=== PATIENT | female | born 1990 | race Caucasian/White ===

== ENCOUNTER 2016-10-01 20:30 | Emergency (ER) | payer MEDICAID, OTHER ==
[~2016-10-01] VITALS: Ht 152.4 cm; Wt 45.5 kg
[~2016-10-01 20:30] MED LIST: CIPR-9 PO; FLUO-1 PO; KLON2TAB PO; PYRI200T4 PO; SERO50TA4 PO
[2016-10-01 20:32] VITALS: BP 129/60; PULSE 88; RESP 16; TEMP 98.5; O2SAT 98
--- NOTE | 2016-10-01 21:12 | PD ---
HPI Chief Complaint: Chest Pain Time Seen by Provider: 21:09 Travel History International Travel<30 days: No Contact w/Intl Traveler<30days: No Traveled to known affect area: No History of Present Illness HPI 26-year-old female with history of no significant past medical issues, presents to the ER today because she states that she was wrestling with her sister juana and fell into the wall hitting her left shoulder, is now having left anterior chest wall pains and feels the spot where there is a crackle when she presses. She denies any shortness of breath but states that she has pain at the left anterior chest wall when she takes a deep breath. She denies any shortness of breath or any other symptoms. Modifying Factors: None Associated Signs & Symptoms: Left chest wall pain, injury Risk Factors: None PFSH Past Medical History ADHD: No Autoimmune Disease: No Blood Disorders: No Anxiety: Yes Depression: Yes Cancer: No Cardiovascular Problems: No Cirrhosis: Yes (LIVER CIRRHOSIS) Diabetes: No Diminished Hearing: No Endocrine: No Gastrointestinal Disorders: Yes Genitourinary: No Hepatitis: No Immune Disorder: Yes Musculoskeletal: No Neurologic: No Psychiatric: No Reproductive: No Respiratory: No Immunizations Current: Yes Migraines: No Seizures: No Thyroid Disease: Yes (NATHALIE'S) Ulcer: No Menopausal: No : 2 Para: 2 Miscarriage: 0 : 0 Past Surgical History Appendectomy: No Section: Yes (X2) Cholecystectomy: No Gynecologic Surgery: Yes (2 C-SECTIONS 2005, 2007) Joint Replacement: No Neurologic Surgery: No Pacemaker: No Thoracic Surgery: No Social History Alcohol Use: Yes Tobacco Use: No Substance Use: No (unknown) Allergies-Medications (Allergen,Severity, Reaction): Coded Allergies: Latex (Verified Allergy, Severe, Swelling, 10/01/16) Reported Meds & Prescriptions Reported Meds & Active Scripts Active Reported Seroquel XR (Quetiapine Fumarate) 50 Mg Tab 25 Mg PO HS Prozac (Fluoxetine HCl) 40 Mg Cap 40 Mg PO DAILY Klonopin (Clonazepam) 2 Mg Tab 2 Mg PO BID Review of Systems Except as stated in HPI: all other systems reviewed are Neg Physical Exam Narrative GENERAL: Well-nourished, well-developed young white female patient in no acute distress. SKIN: Warm and dry. HEAD: Normocephalic. EYES: No scleral icterus. No injection or drainage. NECK: Supple, trachea midline. CARDIOVASCULAR: Regular rate and rhythm without murmurs, gallops, or rubs. RESPIRATORY: Breath sounds equal bilaterally. No accessory muscle use. CHEST: Mild tenderness to palpation of the left anterior chest wall at the area of the second rib midclavicular line without deformity or crepitance. No retractions or use of accessory muscles. GASTROINTESTINAL: Abdomen soft, non-tender, nondistended. MUSCULOSKELETAL: No cyanosis, or edema. BACK: Nontender without obvious deformity. No CVA tenderness. Data Data Last Documented VS Vital Signs Date Time Temp Pulse Resp B/P Pulse Ox O2 Delivery O2 Flow Rate FiO2 10/01/16 20:32 98.5 88 16 129/60 98 Room Air Orders Ribs, Uni (W/Exp Cxr-Min 3vw) (10/01/16 21:09) [facility] Medical Decision Making Medical Screen Exam Complete: Yes Emergency Medical Condition: Yes Medical Record Reviewed: Yes Differential Diagnosis Left chest wall injuryfractures versus contusion Narrative Course X-ray did not show any obvious acute fractures or pneumothoraces. Patient's vital signs are stable in the ER. She is fairly comfortable on evaluation. At this point, I do not suspect other acute issues although she may have an underlying occult rib fracture or rib contusion which we will treat symptomatically. Follow-up with primary care physician. Return for any worsening in pain or new symptoms as needed. The plan has been discussed with her and she is agreeable. Diagnosis Primary Impression: Rib contusion Med/Other Pt SpecificInfo: Prescription(s) given Scripts Hydrocodone-Acetaminophen (Lortab)5-325 Mg Tab1 Tab PO Q6H PRN (PAIN GREATER THAN 6) #15 TAB Ref 0 Prov:Crow Wood MD 10/01/16 Ibuprofen (Motrin Ib)200 Mg [id number] Mg PO Q6H PRN (PAIN SCALE 1 TO 10) #21 TAB Ref 0 Prov:Crow Wood MD 10/01/16 Disposition: 01 DISCHARGE HOME Condition: Stable Crow Wood MD Oct 01, 2016 21:12
[2016-10-01] MEDS ORDERED: QUET50XR PO (21:42)
[2016-10-01] MEDS ORDERED: KLON2TAB PO (21:42)
[2016-10-01] MEDS ORDERED: PROZ40CA PO (21:42)
--- NOTE | 2016-10-01 21:44 | RADRPT ---
EXAM DATE/TIME: 10/01/2016 21:34 [facility] COMPARISON: No previous studies available for comparison. INDICATIONS : Generalized Left side rib pain after fall. MEDICAL HISTORY : None. SURGICAL HISTORY : None. ENCOUNTER: Initial ACUITY: 1 day PAIN SCORE: 10/10 LOCATION: Left Ribs. FINDINGS: Multiple views of the left ribs were performed. There is no evidence of displaced fracture. No dest ructive lesions or areas of periosteal thickening are seen. Expiratory view of the chest is negative for pneumothorax. The mediastinal structures are midline. CONCLUSION: Negative for displaced rib fracture or pneumothorax. Shree Carrillo MD FACR on October 01, 2016 at 21:42 Board Certified Radiologist. This report was verified electronically.
[2016-10-01] MEDS ORDERED: MOTR200T4 PO (21:50)
[2016-10-01] MEDS ORDERED: HYDR-3533 PO (21:50)
== END 2016-10-01 22:00 | disposition home or self-care (01) ==
LOC: NEPC 20:30
DX: S20.212A Contusion of left front wall of thorax, initial encounter (principal); W22.01XA Walked into wall, initial encounter; F32.9 Major depressive disorder, single episode, unspecified
CPT/HCPCS: 71101; 99283

== ENCOUNTER 2017-02-15 04:39 | Emergency (ER) | payer MEDICAID, OTHER ==
[~2017-02-15] VITALS: Ht 152.4 cm; Wt 52.0 kg
[~2017-02-15 04:39] MED LIST changes: -CIPR-9 PO; -FLUO-1 PO; +HYDR-3533 PO; +MOTR200T4 PO; +PROZ40CA PO; -PYRI200T4 PO; +QUET50XR PO; -SERO50TA4 PO
[2017-02-15 04:41] VITALS: BP 138/81; PULSE 74; RESP 18; TEMP 98; O2SAT 100
[2017-02-15] MEDS ORDERED: HYDR-3533 PO (05:10)
[2017-02-15] MEDS ORDERED: CLIN150 PO (05:10)
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
[2017-02-15] MEDS ORDERED: CLINDAMYCIN 150 MG CAP PO ONE (05:15)
[2017-02-15] MEDS ORDERED: ACETAMINOPHEN/HYDROcodone 325 MG/5 MG TAB PO ONE (05:15)
== END 2017-02-15 05:43 | disposition home or self-care (01) ==
LOC: NEPD 04:39
DX: K04.7 Periapical abscess without sinus (principal)
CPT/HCPCS: 99284

== ENCOUNTER 2017-04-04 14:50 | Emergency (ER) | payer OTHER ==
[~2017-04-04] VITALS: Ht 152.4 cm; Wt 50.0 kg
[~2017-04-04 14:50] MED LIST changes: +CLIN150 PO; -MOTR200T4 PO
[2017-04-04 14:52] VITALS: BP 133/87; PULSE 88; TEMP 98.7; O2SAT 100
== END 2017-04-04 15:51 | disposition left against medical advice (07) ==
LOC: NED 14:50
DX: K08.89 Other specified disorders of teeth and supporting structures (principal); Z53.21 Procedure and treatment not carried out due to patient leaving prior to being seen by health care provider
CPT/HCPCS: 99281

== ENCOUNTER 2017-08-12 18:18 | Emergency (ER) | payer OTHER ==
[~2017-08-12] VITALS: Ht 152.4 cm; Wt 45.0 kg
[2017-08-12 18:22] VITALS: BP 131/74; PULSE 108; RESP 16; TEMP 99.1; O2SAT 99
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
== END 2017-08-13 00:30 | disposition home or self-care (01) ==
LOC: NEPD 18:18
DX: T76.21XA Adult sexual abuse, suspected, initial encounter (principal); N93.9 Abnormal uterine and vaginal bleeding, unspecified; F17.210 Nicotine dependence, cigarettes, uncomplicated; Z79.899 Other long term (current) drug therapy
CPT/HCPCS: 99281

== ENCOUNTER 2017-09-15 18:18 | Emergency (ER) | payer OTHER ==
[~2017-09-15] VITALS: Ht 152.4 cm; Wt 48.8 kg
[~2017-09-15 18:18] MED LIST changes: -CLIN150 PO; -HYDR-3533 PO; -PROZ40CA PO; -QUET50XR PO
[2017-09-15 18:20] VITALS: BP 110/58; PULSE 91; RESP 16; TEMP 98.5; O2SAT 97
[2017-09-15] MEDS ORDERED: PROZ40CA PO (18:39)
[2017-09-15] MEDS ORDERED: QUET150XR PO (18:39)
[2017-09-15] MEDS ORDERED: ZOFR4TAB PO (19:34)
--- NOTE | 2017-09-15 19:34 | PD ---
HPI Chief Complaint: Cold / Flu Symptoms Time Seen by Provider: 19:28 Travel History International Travel<30 days: No Contact w/Intl Traveler<30days: No Traveled to known affect area: No History of Present Illness HPI 27 old female here for evaluation of body aches, is a congestion, sore throat, subjective fever, nausea and vomiting since this morning. She reports multiple coworkers with similar symptoms. Reports 2 episodes of nonbloody emesis this morning. Denies abdominal pain. No diarrhea. No dysuria or vaginal discharge. Severity is moderate. No aggravating or alleviating factors. PFSH Past Medical History ADHD: No Autoimmune Disease: No Blood Disorders: No Anxiety: Yes Depression: Yes Cancer: No Cardiovascular Problems: No Cirrhosis: Yes (LIVER CIRRHOSIS) Diabetes: No Diminished Hearing: No Endocrine: No Gastrointestinal Disorders: Yes Genitourinary: No Hepatitis: No Immune Disorder: Yes Musculoskeletal: No Neurologic: No Psychiatric: Yes Reproductive: No Respiratory: No Immunizations Current: Yes Migraines: No Seizures: No Thyroid Disease: Yes (NATHALIE'S) Ulcer: No Tetanus Vaccination: < 5 Years Influenza Vaccination: No ?: Not Menopausal: No : 2 Para: 2 Miscarriage: 0 : 0 Past Surgical History Abdominal Surgery: Yes (LIVER BIOPSY FOR AN ESTRIGEN OD @19) Appendectomy: No Section: Yes (X2) Cholecystectomy: No Gynecologic Surgery: Yes (2 C-SECTIONS 2005, 2007) Joint Replacement: No Neurologic Surgery: No Pacemaker: No Thoracic Surgery: No Other Surgery: Yes (utra) Social History Alcohol Use: Yes (OCC) Tobacco Use: Yes (SOCIAL) Substance Use: No (pt denies) Allergies-Medications (Allergen,Severity, Reaction): Coded Allergies: latex (Verified Allergy, Severe, Swelling, 09/15/17) Reported Meds & Prescriptions Reported Meds & Active Scripts Active Zofran (Ondansetron HCl) 4 Mg Tab 4 Mg PO Q6HR PRN Reported Seroquel XR (Quetiapine Fumarate) 150 Mg Tab 150 Mg PO DAILY Prozac (Fluoxetine HCl) 40 Mg Cap 40 Mg PO DAILY Klonopin (Clonazepam) 2 Mg Tab 2 Mg PO BID Review of Systems Except as stated in HPI: all other systems reviewed are Neg General / Constitutional: Positive: Fever Eyes: No: Visual changes HENT: Positive: Sore Throat, Congestion Cardiovascular: No: Chest Pain or Discomfort Respiratory: Positive: Cough Gastrointestinal: Positive: Nausea, Vomiting Skin: No Rash Physical Exam Narrative GENERAL: Alert female. Well appearing. Nontoxic appearing. SKIN: Warm and dry. No rash. HEAD: Normocephalic. EYES: No scleral icterus. No injection or drainage. MOUTH: Mild pharyngeal erythema without tonsillar hypertrophy or exudate. NECK: Supple, trachea midline. CARDIOVASCULAR: Regular rate and rhythm RESPIRATORY: Breath sounds equal bilaterally. No accessory muscle use. GASTROINTESTINAL: Abdomen soft, non-tender, nondistended. MUSCULOSKELETAL: No cyanosis, or edema. BACK: Nontender without obvious deformity. No CVA tenderness. Data Data Last Documented VS Vital Signs Date Time Temp Pulse Resp B/P (MAP) Pulse Ox O2 Delivery O2 Flow Rate FiO2 09/15/17 18:36 Room Air 09/15/17 18:20 98.5 91 16 110/58 (75) 97 MDM Medical Decision Making Medical Screen Exam Complete: Yes Emergency Medical Condition: Yes Differential Diagnosis Viral illness, influenza, URI, gastroenteritis Narrative Course 27 old female here for evaluation of body aches, subjective fever, nausea and vomiting since this morning. She reports multiple coworkers with similar symptoms. Her physical exam is reassuring. Her vital signs are stable. She is nontoxic appearing. She is tolerating by mouth fluids. Her abdomen soft and nontender. She is not interested in being treated or tested for flu. She is just requesting for a work excuse and something for the nausea. Diagnosis Primary Impression: Viral illness Referrals: [facility] Departure Forms: Tests/Procedures, Work Release Enter return to work date: Sep 16, 2017 Additional Instructions: Stay well hydrated by drinking plenty of fluids. Take Zofran as needed for nausea vomiting. Eat a bland diet. Scripts Ondansetron (Zofran) 4 Mg Tab 4 MG PO Q6HR Y for NAUSEA OR VOMITING, #12 TAB 0 Refills Prov: Michaela Payne 09/15/17 Disposition: 01 DISCHARGE HOME Condition: Stable Michaela Payne Sep 15, 2017 19:34
== END 2017-09-15 19:38 | disposition home or self-care (01) ==
LOC: PHEFT 18:18
DX: B34.9 Viral infection, unspecified (principal); K74.60 Unspecified cirrhosis of liver; E06.3 Autoimmune thyroiditis; F41.9 Anxiety disorder, unspecified; F32.9 Major depressive disorder, single episode, unspecified; Z72.0 Tobacco use
CPT/HCPCS: 99283

== ENCOUNTER 2017-10-27 08:35 | Emergency (ER) | payer OTHER ==
[~2017-10-27 08:35] MED LIST changes: +PROZ40CA PO; +QUET150XR PO; +ZOFR4TAB PO
[2017-10-27 08:37] VITALS: BP 123/63; PULSE 102; RESP 24; TEMP 101.6; O2SAT 98
[2017-10-27 09:04] VITALS: BP 123/60; PULSE 99; RESP 18; TEMP 101.9; O2SAT 100
[2017-10-27] MEDS ORDERED: SODIUM CHLOR 0.9% 1000 ML INJ 1,000 ML IV SCH (09:04)
[2017-10-27] MEDS ORDERED: ONDANSETRON HCL 4 MG/2 ML VIAL IVP ONE (09:15)
[2017-10-27] MEDS ORDERED: MORPHINE SULFATE 4 MG/ML INJ IV PUSH ONE ×2 (09:15→12:45)
--- NOTE | 2017-10-27 09:23 | PD ---
HPI Chief Complaint: Abdominal Pain Time Seen by Provider: 09:04 Travel History International Travel<30 days: No Contact w/Intl Traveler<30days: No Traveled to known affect area: No History of Present Illness HPI Patient complains of 28 hours worth of right upper quadrant right lower quadrant and right flank area pain, rates it an 8/10, nonradiating, not associated with vomiting or diarrhea. No alleviating or aggravating factors. Patient denies any associated factors such as cough runny nose chest pain. Allergy to latex only Past medical history states cirrhosis from [facility] Denies any past surgical history other than (Dr. Patrick) PFSH Past Medical History ADHD: No Autoimmune Disease: No Blood Disorders: No Anxiety: Yes Depression: Yes Cancer: No Cardiovascular Problems: No Cirrhosis: Yes (LIVER CIRRHOSIS) Diabetes: No Diminished Hearing: No Endocrine: No Gastrointestinal Disorders: Yes Genitourinary: No Hepatitis: No Hypertension: No Immune Disorder: Yes Musculoskeletal: No Neurologic: No Psychiatric: Yes Reproductive: No Respiratory: No Immunizations Current: Yes Migraines: No Seizures: No Thyroid Disease: Yes (NATHALIE'S) Ulcer: No ?: Not LMP: OCT 2017 Menopausal: No : 2 Para: 2 Miscarriage: 0 : 0 Past Surgical History Abdominal Surgery: Yes (LIVER BIOPSY FOR AN ESTRIGEN OD @19) Appendectomy: No Section: Yes (X2) Cholecystectomy: No Gynecologic Surgery: Yes (2 C-SECTIONS 2005, 2007) Joint Replacement: No Neurologic Surgery: No Pacemaker: No Thoracic Surgery: No Other Surgery: Yes (utra) Social History Alcohol Use: Yes (OCC) Tobacco Use: Yes (SOCIAL) Substance Use: Yes (THC daily) Allergies-Medications (Allergen,Severity, Reaction): Coded Allergies: latex (Verified Allergy, Severe, Swelling, 09/15/17) Reported Meds & Prescriptions Reported Meds & Active Scripts Active Macrobid (Nitrofurantoin Monohydrate Macrocrystals) 100 Mg Capsule 100 Mg PO BID 7 Days Zofran Odt (Ondansetron Odt) 4 Mg Tab 4 Mg SL Q6HR PRN Ketorolac (Ketorolac Tromethamine) 10 Mg Tab 10 Mg PO Q6HR PRN Reported B Complex (B-Complex Vitamins) 1 Cap 1 Cap PO DAILY Klonopin (Clonazepam) 2 Mg Tab 2 Mg PO BID Physical Exam Narrative GENERAL: SKIN: Warm and dry. HEAD: Atraumatic. Normocephalic. EYES: Pupils equal and round. No scleral icterus. No injection or drainage. ENT: No nasal bleeding or discharge. Mucous membranes pink and moist. NECK: Trachea midline. No JVD. CARDIOVASCULAR: Regular rate and rhythm. RESPIRATORY: No accessory muscle use. Clear to auscultation. Breath sounds equal bilaterally. GASTROINTESTINAL: Abdomen soft, non-tender, nondistended. MUSCULOSKELETAL: Extremities without clubbing, cyanosis, or edema. No obvious deformities. NEUROLOGICAL: Awake and alert. No obvious cranial nerve deficits. Motor grossly within normal limits. Five out of 5 muscle strength in the arms and legs. Normal speech. PSYCHIATRIC: Appropriate mood and affect; insight and judgment normal. Data Data Last Documented VS Orders Orders Complete Blood Count With Diff (10/27/17 09:04) Comprehensive Metabolic Panel (10/27/17 09:04) Lipase (10/27/17 09:04) Urinalysis - C+S If Indicated (10/27/17 09:04) Iv Access Insert/Monitor (10/27/17 09:04) Ecg Monitoring (10/27/17 09:04) Oximetry (10/27/17 09:04) NPO (10/27/17 09:04) Morphine Inj (Morphine Inj) (10/27/17 09:15) Ondansetron Inj (Zofran Inj) (10/27/17 09:15) Sodium Chlor 0.9% 1000 Ml Inj (Ns 1000 M (10/27/17 09:04) Ed Urine Pregnancytest Poc (10/27/17 09:04) Lactic Acid Sepsis Protocol (10/27/17 09:09) Blood Culture (10/27/17 09:09) Ct Abd/Pel W Iv Contrast(Rout) (10/27/17 09:23) Oral Contrast - Adult (10/27/17 09:29) Diatrizoate Liq ( Gastroview Liq) (10/27/17 09:46) Iohexol 350 Inj (Omnipaque 350 Inj) (10/27/17 11:26) Ketorolac Inj (Toradol Inj) (10/27/17 12:45) Morphine Inj (Morphine Inj) (10/27/17 12:45) Ondansetron Inj (Zofran Inj) (10/27/17 12:45) Ed Discharge Order (10/27/17 12:44) Labs Laboratory Tests Test 10/27/17 09:12 10/27/17 09:20 White Blood Count 4.4 TH/MM3 Red Blood Count 5.34 MIL/MM3 Hemoglobin 16.9 GM/DL Hematocrit 48.2 % Mean Corpuscular Volume 90.3 FL Mean Corpuscular Hemoglobin 31.7 PG Mean Corpuscular Hemoglobin Concent 35.1 % Red Cell Distribution Width 13.1 % Platelet Count 99 TH/MM3 Mean Platelet Volume 10.4 FL Neutrophils (%) (Auto) 69.1 % Lymphocytes (%) (Auto) 22.3 % Monocytes (%) (Auto) 8.1 % Eosinophils (%) (Auto) 0.0 % Basophils (%) (Auto) 0.5 % Neutrophils # (Auto) 3.0 TH/MM3 Lymphocytes # (Auto) 1.0 TH/MM3 Monocytes # (Auto) 0.4 TH/MM3 Eosinophils # (Auto) 0.0 TH/MM3 Basophils # (Auto) 0.0 TH/MM3 CBC Comment AUTO DIFF Differential Total Cells Counted 100 Neutrophils % (Manual) 49 % Band Neutrophils % 24 % Lymphocytes % 20 % Monocytes % 7 % Neutrophils # (Manual) 3.2 TH/MM3 Differential Comment FINAL DIFF MANUAL Atypical Lymphocytes % Platelet Estimate LOW Platelet Morphology Comment NORMAL Urine Color YELLOW Urine Turbidity HAZY Urine pH 6.0 Urine Specific [place] 1.007 Urine Protein NEG mg/dL Urine Glucose (UA) NEG mg/dL Urine Ketones TRACE mg/dL Urine Occult Blood MOD Urine Nitrite NEG Urine Bilirubin NEG Urine Urobilinogen LESS THAN 2.0 MG/DL Urine Leukocyte Esterase MOD Urine RBC 84 /hpf Urine WBC 3 /hpf Urine Squamous Epithelial Cells 7 /hpf Urine Calcium Oxalate Crystals RARE /hpf Urine Bacteria RARE /hpf Urine Mucus FEW /lpf Microscopic Urinalysis Comment CULT NOT INDICATED Blood Urea Nitrogen 4 MG/DL Creatinine 0.66 MG/DL Random Glucose 96 MG/DL Total Protein 8.8 GM/DL Albumin 5.1 GM/DL Calcium Level 10.0 MG/DL Alkaline Phosphatase 149 U/L Aspartate Amino Transf (AST/SGOT) 52 U/L Alanine Aminotransferase (ALT/SGPT) 45 U/L Total Bilirubin 0.4 MG/DL Sodium Level 133 MEQ/L Potassium Level 3.2 MEQ/L Chloride Level 98 MEQ/L Carbon Dioxide Level 24.4 MEQ/L Anion Gap 11 MEQ/L Estimat Glomerular Filtration Rate 108 ML/MIN Lipase 81 U/L Lactic Acid Level 1.0 mmol/L MDM Medical Decision Making Medical Screen Exam Complete: Yes Emergency Medical Condition: Yes Medical Record Reviewed: Yes Differential Diagnosis UTI V APPY V OVARIAN CYST V KIDNEY STONES V GALLSTONES V DIVERTIC V COLITIS Narrative Course cbc shows no leukocytosis, no anemia. cmp showed normal electrolytes/kidney function. normal lipase. ct neg for colitis/divertic/kidney stones or appy. ua c/w uti, and adnexal pain in non female with neg ct is likely to have ovarian cyst as part of cause for pain. Diagnosis Primary Impression: UTI Additional Impression: OVARIAN CYST Patient Instructions: General Instructions, Ovarian Cyst (DC), Urinary Tract Infection in Women (DC) Scripts Nitrofurantoin Monohydrate Macrocrystals (Macrobid) 100 Mg Capsule 100 MG PO BID for Infection for 7 Days, #14 CAP 0 Refills Prov: Berto Powell MD 10/27/17 Ondansetron Odt (Zofran Odt) 4 Mg Tab 4 MG SL Q6HR Y for Nausea/Vomiting, #12 TAB 0 Refills Prov: Berto Powell MD 10/27/17 Ketorolac (Ketorolac) 10 Mg Tab 10 MG PO Q6HR Y for PAIN, #15 TAB 0 Refills Prov: Berto Powell MD 10/27/17 Disposition: 01 DISCHARGE HOME Condition: Stable Berto Powell MD Oct 27, 2017 09:23
[2017-10-27 09:33] LABS: BASOPHIL % 0.5 % (0.0-2.0); HEMATOCRIT 48.2 % (35.0-46.0); HEMOGLOBIN 16.9 GM/DL (11.6-15.3); LYMPH % 22.3 % (9.0-44.0); MEAN CELL VOLUME 90.3 FL (80.0-100.0); MEAN CORPUSCULAR HEMOGLOBIN 31.7 PG (27.0-34.0); MEAN CORPUSCULAR HGB CONC 35.1 % (32.0-36.0); MEAN PLATELET VOLUME 10.4 FL (7.0-11.0); MONO % 8.1 % (0.0-8.0); MONOCYTE # 0.4 TH/MM3 (0-0.9); NEUT % 69.1 % (16.0-70.0); PLATELET COUNT 99 TH/MM3 (150-450); RED BLOOD COUNT 5.34 MIL/MM3 (4.00-5.30); RED CELL DISTRIBUTION WIDTH 13.1 % (11.6-17.2); WHITE BLOOD COUNT 4.4 TH/MM3 (4.0-11.0)
[2017-10-27 09:44] VITALS: RESP 18; O2SAT 99
[2017-10-27] MEDS ORDERED: DIATRIZOATE MEGLUM/DIATRIZOATE SOD 9 ML CUP ONE (09:46)
[2017-10-27 09:49] LABS: ALBUMIN 5.1 GM/DL (3.4-5.0); ALT (GPT) 45 U/L (10-53); AST (GOT) 52 U/L (15-37); BICARBONATE 24.4 MEQ/L (21.0-32.0); BLOOD UREA NITROGEN 4 MG/DL (7-18); CHLORIDE 98 MEQ/L (98-107); CREATININE 0.66 MG/DL (0.50-1.00); GLOMERULAR FILTRATION RATE 108 ML/MIN (>89); GLUCOSE,RANDOM 96 MG/DL (74-106); SODIUM (NA) 133 MEQ/L (136-145)
[2017-10-27 09:50] LABS: BACTERIA, URINE RARE /hpf; BILIRUBIN, URINE NEG (NEG); BLOOD, URINE MOD (NEG); CALCIUM OXALATE CRYSTALS,URINE RARE /hpf; GLUCOSE,URINE NEG (NEG); KETONE, URINE TRACE mg/dL (NEG); MUCUS URINE FEW /lpf (OCC); NITRITE,URINE NEG (NEG); SQUAMOUS EPITHELIAL CELL URINE 7 /hpf (0-5); URINE COLOR YELLOW (YELLW/STRAW); URINE LEUKOCYTE ESTERASE MOD (NEG)
[2017-10-27 09:52] LABS: ALKALINE PHOSPHATASE 149 U/L (45-117); TOTAL BILIRUBIN ADULT 0.4 MG/DL (0.2-1.0); TOTAL PROTEIN 8.8 GM/DL (6.4-8.2)
[2017-10-27 10:06] LABS: BANDS 24 % (0-6); LYMPHOCYTES 20 % (9-44); MONOCYTES 7 % (0-8); NEUTROPHIL # MANUAL DIFF 3.2 TH/MM3 (1.8-7.7); POLYS (SEG NEUTROPHILS) 49 % (16-70)
[2017-10-27] MEDS ORDERED: VITACAP7 PO (10:07)
[2017-10-27] MEDS ORDERED: IOHEXOL 350 MG/ML 10 ML VIAL (for RAD DIAG) IVCONTRAST ONE (11:26)
--- NOTE | 2017-10-27 11:38 | RADRPT ---
EXAM DATE/TIME: 10/27/2017 11:21 [facility] COMPARISON: No previous studies available for comparison. INDICATIONS : Right abdominal pain radiating to the back. IV CONTRAST: 92 cc Omnipaque 350 (iohexol) IV ORAL CONTRAST: Prescribed oral contrast ingested. RADIATION DOSE: 6.64 CTDIvol (mGy) MEDICAL HISTORY : Cirrhosis. Celia's disease. SURGICAL HISTORY : section. ENCOUNTER: Initial ACUITY: 1 day PAIN SCALE: 7/10 LOCATION: Right upper quadrant TECHNIQUE: Volumetric scanning of the abdomen and pelvis was performed. Using automated exposure control and ad justment of the mA and/or kV according to patient size, radiation dose was kept as low as reasonably achievable to obtain optimal diagnostic quality images. DICOM format image data is available electro nically for review and comparison. FINDINGS: Lung base is are clear. Liver is unremarkable. Mild prominence of the spleen with calcification. Pancreas, adrenals and kidneys unremarkable There is no adenopathy There is no free fluid There no inflammatory changes in the abdomen The pelvis there is an IUD within the uterus. There is trace free fluid in the pelvis. Small cystic areas are present in both adnexal regions. There is no free air or obstruction Bladder prominent Bone windows are unremarkable. CONCLUSION: IUD in the pelvis with trace free fluid and small cystic areas both adnexal regions Mild prominence of the spleen No renal stone or obstruction. Shree Carrillo MD FACR on October 27, 2017 at 11:34 Board Certified Radiologist. This report was verified electronically.
[2017-10-27] MEDS ORDERED: ZOFR4TAB3 SL (12:39)
[2017-10-27] MEDS ORDERED: MACR100C2 PO (12:39)
[2017-10-27] MEDS ORDERED: KETO10 PO (12:39)
[2017-10-27] MEDS ORDERED: KETOROLAC TROMETHAMINE 30 MG/ML (IVP) VIAL IV PUSH ONE (12:45)
[2017-10-27] MEDS ORDERED: ONDANSETRON HCL 4 MG/2 ML VIAL IV PUSH ONE (12:45)
== END 2017-10-27 20:46 | disposition home or self-care (01) ==
LOC: NEPC 08:35
DX: N39.0 Urinary tract infection, site not specified (principal); F41.9 Anxiety disorder, unspecified; F43.29 Adjustment disorder with other symptoms; K74.60 Unspecified cirrhosis of liver; F32.9 Major depressive disorder, single episode, unspecified; E06.3 Autoimmune thyroiditis; Z72.0 Tobacco use; Z79.899 Other long term (current) drug therapy
CPT/HCPCS: 74177; 80053; 81001; 83605; 83690; 84703; 85007; 85027; 87040; 96374; 96375; 99284; J1885; J2270; J2405; J7030; Q9963; Q9967

== ENCOUNTER 2017-10-31 11:19 | Emergency (ER) | payer OTHER ==
[~2017-10-31] VITALS: Ht 152.4 cm; Wt 45.5 kg
[~2017-10-31 11:19] MED LIST changes: +KETO10 PO; +MACR100C2 PO; -PROZ40CA PO; -QUET150XR PO; +VITACAP7 PO; -ZOFR4TAB PO; +ZOFR4TAB3 SL
[2017-10-31 11:20] VITALS: BP 140/77; PULSE 140; RESP 22; TEMP 99.2; O2SAT 100
[2017-10-31] MEDS ORDERED: SODIUM CHLOR 0.9% 1000 ML INJ 1,000 ML IV SCH (11:35)
[2017-10-31] MEDS ORDERED: MORPHINE SULFATE 4 MG/ML INJ IV PUSH ONE (11:45)
[2017-10-31] MEDS ORDERED: ONDANSETRON HCL 4 MG/2 ML VIAL IVP ONE (11:45)
[2017-10-31] MEDS ORDERED: SODIUM CHLORIDE 0.9% FLUSH 10 ML FLUSH IV FLUSH PRN (11:45)
--- NOTE | 2017-10-31 11:52 | PD ---
HPI . Abdominal pain Chief Complaint: Abdominal Pain Time Seen by Provider: 11:35 Travel History International Travel<30 days: No Contact w/Intl Traveler<30days: No Traveled to known affect area: No History of Present Illness HPI Patient presents with the chief complaint of right lower quadrant abdominal pain. It is getting progressively worse. She was seen here on 10/27 for same and had a complete workup including a CT of her abdomen and pelvis. The CT was basically benign. An IUD was noted and she was found to have small, bilateral ovarian cysts. Her UA was compatible with a urinary tract infection. She was discharged on Macrobid. She was discharged with prescriptions for Zofran and Toradol. She states that she cannot take Toradol because it upsets her stomach. She states that her pain has been getting progressively worse. She called her pot operator today and instructed to return here for repeat evaluation. She states that she has had her IUD for 9 years. It has never caused her any problems. 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 She states that it released all of its estrogen at one time causing the liver failure. She states that the copper IUD is her only option for control other than abstinence for condoms. Nonetheless, the patient presents back to us today with continuing and worsening right lower quadrant abdominal pain. The pain is very severe with no modifying factors. PFSH Past Medical History ADHD: No Autoimmune Disease: No Blood Disorders: No Anxiety: Yes Depression: Yes Cancer: No Cardiovascular Problems: No Cirrhosis: Yes (LIVER CIRRHOSIS) Diabetes: No Diminished Hearing: No Endocrine: No Gastrointestinal Disorders: Yes Genitourinary: No Hepatitis: No Hypertension: No Immune Disorder: Yes Musculoskeletal: No Neurologic: No Psychiatric: Yes Reproductive: No Respiratory: No Immunizations Current: Yes Migraines: No Seizures: No Thyroid Disease: Yes (NATHALIE'S) Ulcer: No Menopausal: No : 2 Para: 2 Miscarriage: 0 : 0 Past Surgical History Abdominal Surgery: Yes (LIVER BIOPSY FOR AN ESTRIGEN OD @19) Appendectomy: No Section: Yes (X2) Cholecystectomy: No Gynecologic Surgery: Yes (2 C-SECTIONS 2005, 2007) Joint Replacement: No Neurologic Surgery: No Pacemaker: No Thoracic Surgery: No Other Surgery: Yes (utra) Social History Alcohol Use: Yes (OCC) Tobacco Use: Yes (SOCIAL) Substance Use: Yes (THC daily) Allergies-Medications (Allergen,Severity, Reaction): Coded Allergies: latex (Verified Allergy, Severe, Swelling, 09/15/17) Reported Meds & Prescriptions Reported Meds & Active Scripts Active Macrobid (Nitrofurantoin Monohydrate Macrocrystals) 100 Mg Capsule 100 Mg PO BID 7 Days Zofran Odt (Ondansetron Odt) 4 Mg Tab 4 Mg SL Q6HR PRN Ketorolac (Ketorolac Tromethamine) 10 Mg Tab 10 Mg PO Q6HR PRN Reported B Complex (B-Complex Vitamins) 1 Cap 1 Cap PO DAILY Klonopin (Clonazepam) 2 Mg Tab 2 Mg PO BID Review of Systems Except as stated in HPI: all other systems reviewed are Neg General / Constitutional: No: Fever, Chills Gastrointestinal: Positive: Abdominal Pain Genitourinary: No: Urgency, Frequency, Dysuria, Discharge, Vaginal Bleeding Physical Exam Narrative GENERAL: I found the patient lying in the bed on her left side in the position and crying. SKIN: warm/dry. HEAD: Normocephalic. EYES: Pupils equal and round. No scleral icterus. No injection or drainage. ENT: No nasal bleeding or discharge. Mucous membranes pink and moist. NECK: Trachea midline. Full range of motion without pain.. CARDIOVASCULAR: Regular rate and rhythm. RESPIRATORY: No accessory muscle use. Clear to auscultation. Breath sounds equal bilaterally. GASTROINTESTINAL: Abdomen soft. Right sided abdominal tenderness. Bowel sounds present. Nondistended. MUSCULOSKELETAL: No obvious deformities. NEUROLOGICAL: Awake and alert. No obvious cranial nerve deficits. Motor grossly within normal limits. Normal speech. PSYCHIATRIC: Appropriate mood and affect; insight and judgment normal. Data Data Last Documented VS Vital Signs Date Time Temp Pulse Resp B/P (MAP) Pulse Ox O2 Delivery O2 Flow Rate FiO2 10/31/17 12:30 15 10/31/17 12:22 78 114/68 (83) 98 Room Air 10/31/17 11:20 99.2 Orders Orders Basic Metabolic Panel (Bmp) (10/31/17 11:35) Complete Blood Count With Diff (10/31/17 11:35) Lactic Acid (10/31/17 11:35) Urinalysis - C+S If Indicated (10/31/17 11:35) Ct Abd/Pel W Iv Contrast(Rout) (10/31/17 11:35) Iv Access Insert/Monitor (10/31/17 11:35) Ecg Monitoring (10/31/17 11:35) Oximetry (10/31/17 11:35) Morphine Inj (Morphine Inj) (10/31/17 11:45) Ondansetron Inj (Zofran Inj) (10/31/17 11:45) Sodium Chlor 0.9% 1000 Ml Inj (Ns 1000 M (10/31/17 11:35) Sodium Chloride 0.9% Flush (Ns Flush) (10/31/17 11:45) Ed Urine Pregnancytest Poc (10/31/17 11:35) Iohexol 350 Inj (Omnipaque 350 Inj) (10/31/17 13:42) Labs Laboratory Tests Test 10/31/17 12:15 10/31/17 12:45 Urine Color YELLOW Urine Turbidity HAZY Urine pH 6.0 Urine Specific [place] 1.013 Urine Protein NEG mg/dL Urine Glucose (UA) NEG mg/dL Urine Ketones 10 mg/dL Urine Occult Blood SMALL Urine Nitrite NEG Urine Bilirubin NEG Urine Urobilinogen 2.0 MG/DL Urine Leukocyte Esterase NEG Urine RBC 34 /hpf Urine WBC 3 /hpf Urine Squamous Epithelial Cells 5 /hpf Urine Bacteria RARE /hpf Urine Mucus FEW /lpf Microscopic Urinalysis Comment CULT NOT INDICATED White Blood Count 5.1 TH/MM3 Red Blood Count 4.12 MIL/MM3 Hemoglobin 13.1 GM/DL Hematocrit 37.4 % Mean Corpuscular Volume 90.8 FL Mean Corpuscular Hemoglobin 31.8 PG Mean Corpuscular Hemoglobin Concent 35.0 % Red Cell Distribution Width 12.9 % Platelet Count 94 TH/MM3 Mean Platelet Volume 10.6 FL Neutrophils (%) (Auto) 34.4 % Lymphocytes (%) (Auto) 44.0 % Monocytes (%) (Auto) 17.7 % Eosinophils (%) (Auto) 3.2 % Basophils (%) (Auto) 0.7 % Neutrophils # (Auto) 1.8 TH/MM3 Lymphocytes # (Auto) 2.3 TH/MM3 Monocytes # (Auto) 0.9 TH/MM3 Eosinophils # (Auto) 0.2 TH/MM3 Basophils # (Auto) 0.0 TH/MM3 CBC Comment AUTO DIFF Differential Comment AUTO DIFF CONFIRMED Blood Urea Nitrogen 3 MG/DL Creatinine 0.45 MG/DL Random Glucose 84 MG/DL Calcium Level 7.7 MG/DL Sodium Level 141 MEQ/L Potassium Level 3.5 MEQ/L Chloride Level 111 MEQ/L Carbon Dioxide Level 22.8 MEQ/L Anion Gap 7 MEQ/L Estimat Glomerular Filtration Rate 168 ML/MIN Lactic Acid Level 1.1 mmol/L MDM Medical Decision Making Medical Screen Exam Complete: Yes Emergency Medical Condition: Yes Medical Record Reviewed: Yes (records from 10/27 were reviewed. Please see HPI for pertinent findings. Also, the patient has been seen here multiple times with relatively trivial complaints. She has also been seen here for psychiatric issues and for medical clearance to go to intermediate.) Differential Diagnosis Differential diagnosis of abdominal pain includes but is not limited to gastritis, pancreatitis, hepatitis, gastroenteritis, gallbladder disease, constipation, urinary retention, UTI, peptic ulcer disease, diverticulitis or appendicitis Narrative Course Patient presents for repeat evaluation of right lower quadrant abdominal pain. Seen here on 10/27 for same. Workup was basically negative. She was found to have a UTI. I will repeat the evaluation today. 12:45 PM Patient now appears very comfortable. She is lying on the stretcher with her legs crossed chatting on her cell phone. CBC & BMP Diagram 10/31/17 12:45 Calcium Level 7.7 L LA 1.1 UA>>small blood, 34 RBCs, 3 WBCs, rare bact Her UA is improved since 10/27/17. Her other labs have not significantly changed since her recent visit. CT: 1. Stable examination with a rim-enhancing 1.8 cm structure in the right adnexal region probably representing an involuting cyst. 2. Vermiform appendix is not clearly identified but no secondary signs of appendicitis. 3. Retroverted uterus with IUD in place. 4. Benign-appearing dystrophic type sub-centimeters calcification in the posterior splenic parenchyma. Nonobstructing, 2-3 mm stone in the upper pole collecting system of the right kidney. This patient has no objective signs of significant pathology. The history, exam, diagnostic testing, and current condition do not suggest any significant pathology to warrant further testing, continued ED treatment, admission, or surgical evaluation at this point. No EMC was found. The patient 's condition is stable and appropriate for discharge. Diagnosis Primary Impression: Abdominal pain Qualified Codes: R10.31 - Right lower quadrant pain Patient Instructions: Abdominal Pain (ED), General Instructions, Narcotic given in the ED Additional Instructions: Follow-up with your primary care physician or your pot operator if your symptoms continue. Disposition: 01 DISCHARGE HOME Condition: Stable Arcelia Knox MD Oct 31, 2017 11:52
[2017-10-31 12:22] VITALS: BP 114/68; PULSE 78; RESP 16; O2SAT 98
[2017-10-31 13:32] LABS: AUTOMATED NEUTROPHIL # 1.8 TH/MM3 (1.8-7.7); BASOPHIL % 0.7 % (0.0-2.0); EOSINOPHIL # 0.2 TH/MM3 (0-0.4); EOSINOPHIL % 3.2 % (0.0-4.0); HEMATOCRIT 37.4 % (35.0-46.0); HEMOGLOBIN 13.1 GM/DL (11.6-15.3); LYMPHOCYTE # 2.3 TH/MM3 (1.0-4.8); MEAN CELL VOLUME 90.8 FL (80.0-100.0); MEAN CORPUSCULAR HEMOGLOBIN 31.8 PG (27.0-34.0); MEAN PLATELET VOLUME 10.6 FL (7.0-11.0); MONO % 17.7 % (0.0-8.0); MONOCYTE # 0.9 TH/MM3 (0-0.9); NEUT % 34.4 % (16.0-70.0); PLATELET COUNT 94 TH/MM3 (150-450); RED BLOOD COUNT 4.12 MIL/MM3 (4.00-5.30); RED CELL DISTRIBUTION WIDTH 12.9 % (11.6-17.2); WHITE BLOOD COUNT 5.1 TH/MM3 (4.0-11.0)
[2017-10-31 13:40] LABS: BACTERIA, URINE RARE /hpf; BILIRUBIN, URINE NEG (NEG); BLOOD, URINE SMALL (NEG); GLUCOSE,URINE NEG (NEG); KETONE, URINE 10 mg/dL (NEG); MUCUS URINE FEW /lpf (OCC); NITRITE,URINE NEG (NEG); SQUAMOUS EPITHELIAL CELL URINE 5 /hpf (0-5); URINE COLOR YELLOW (YELLW/STRAW); URINE LEUKOCYTE ESTERASE NEG (NEG)
[2017-10-31] MEDS ORDERED: IOHEXOL 350 MG/ML 10 ML VIAL (for RAD DIAG) IVCONTRAST ONE (13:42)
[2017-10-31 13:52] LABS: BICARBONATE 22.8 MEQ/L (21.0-32.0); CALCIUM 7.7 MG/DL (8.5-10.1); CREATININE 0.45 MG/DL (0.50-1.00)
--- NOTE | 2017-10-31 14:17 | RADRPT ---
EXAM DATE/TIME: 10/31/2017 13:24 [facility] COMPARISON: CT ABDOMEN & PELVIS W CONTRAST, October 27, 2017, 11:21. INDICATIONS : Right lower abdominal pain IV CONTRAST: 91 cc Omnipaque 350 (iohexol) IV ORAL CONTRAST: No oral contrast ingested. RADIATION DOSE: 4.50 CTDIvol (mGy) MEDICAL HISTORY : Cirrhosis. Hernia, hiatal. Ovarian cysts SURGICAL HISTORY : None. ENCOUNTER: Initial ACUITY: 4 - 6 days PAIN SCALE: 10/10 LOCATION: Right lower quadrant TECHNIQUE: Volumetric scanning of the abdomen and pelvis was performed. Using automated exposure control and ad justment of the mA and/or kV according to patient size, radiation dose was kept as low as reasonably achievable to obtain optimal diagnostic quality images. DICOM format image data is available electro nically for review and comparison. FINDINGS: LOWER LUNGS: The visualized lower lungs are clear. LIVER: Homogeneous density without lesion. There is no dilation of the biliary tree. No calcified gallston es. SPLEEN: Isolated, sub-centimeter dystrophic calcification in the posterior splenic parenchyma. PANCREAS: Within normal limits. KIDNEYS: Normal in size and shape. There is small, 2-3 mm nonobstructing stone in the upper pole collecting sy stem of the right kidney. ADRENAL GLANDS: Within normal limits. VASCULAR: There is no aortic aneurysm. BOWEL/MESENTERY: The stomach, small bowel, and colon demonstrate no acute abnormality. There is no free intraperitone al air or fluid. ABDOMINAL WALL: Within normal limits. RETROPERITONEUM: There is no lymphadenopathy. BLADDER: No wall thickening or mass. REPRODUCTIVE: IUD in place. Uterus is retroverted. Rim-enhancing 1.8 cm probable involuting cyst in the right adnex al region. INGUINAL: There is no lymphadenopathy or hernia. MUSCULOSKELETAL: Within normal limits for patient age. CONCLUSION: 1. Stable examination with a rim-enhancing 1.8 cm structure in the right adnexal region probably repr esenting an involuting cyst. 2. Vermiform appendix is not clearly identified but no secondary signs of appendicitis. 3. Retroverted uterus with IUD in place. 4. Benign-appearing dystrophic type sub-centimeters calcification in the posterior splenic parenchyma . Nonobstructing, 2-3 mm stone in the upper pole collecting system of the right kidney. Andrea Brown MD on October 31, 2017 at 14:07 Board Certified Radiologist. This report was verified electronically.
== END 2017-10-31 14:56 | disposition home or self-care (01) ==
LOC: NEPD 11:19
DX: R10.31 Right lower quadrant pain (principal); F32.9 Major depressive disorder, single episode, unspecified; Z72.0 Tobacco use
CPT/HCPCS: 74177; 80048; 81001; 83605; 84703; 85025; 96361; 96374; 96375; 99285; J2270; J2405; J7030; Q9967

== ENCOUNTER → 2017-11-17 | Outpatient (CLI) | payer OTHER ==
[2017-11-17 10:23] LABS: BASOPHIL % 0.7 % (0.0-2.0); EOSINOPHIL # 0.2 TH/MM3 (0-0.4); EOSINOPHIL % 3.5 % (0.0-4.0); HEMATOCRIT 40.6 % (35.0-46.0); HEMOGLOBIN 14.2 GM/DL (11.6-15.3); LYMPHOCYTE # 1.7 TH/MM3 (1.0-4.8); MEAN CELL VOLUME 90.7 FL (80.0-100.0); MEAN CORPUSCULAR HEMOGLOBIN 31.8 PG (27.0-34.0); MEAN CORPUSCULAR HGB CONC 35.1 % (32.0-36.0); MEAN PLATELET VOLUME 9.5 FL (7.0-11.0); MONO % 10.1 % (0.0-8.0); MONOCYTE # 0.6 TH/MM3 (0-0.9); NEUT % 54.7 % (16.0-70.0); PLATELET COUNT 159 TH/MM3 (150-450); RED BLOOD COUNT 4.48 MIL/MM3 (4.00-5.30); WHITE BLOOD COUNT 5.5 TH/MM3 (4.0-11.0)
[2017-11-17 10:25] LABS: INTERNATIONAL NORMALIZED RATIO 1.1 RATIO; PROTHROMBIN TIME - PATIENT 11.2 SEC (9.8-11.6)
[2017-11-17 10:45] LABS: ALBUMIN 4.3 GM/DL (3.4-5.0); ALT (GPT) 24 U/L (10-53); AST (GOT) 24 U/L (15-37); BICARBONATE 26.1 MEQ/L (21.0-32.0); CALCIUM 9.4 MG/DL (8.5-10.1); CHLORIDE 104 MEQ/L (98-107); CREATININE 0.62 MG/DL (0.50-1.00); DIRECT BILIRUBIN ADULT 0.3 MG/DL (0.0-0.2); GLOMERULAR FILTRATION RATE 116 ML/MIN (>89); GLUCOSE,FASTING 80 MG/DL (74-99); SODIUM (NA) 139 MEQ/L (136-145)
[2017-11-17 10:54] LABS: ALKALINE PHOSPHATASE 139 U/L (45-117); BLOOD UREA NITROGEN 5 MG/DL (7-18); FREE T4 1.12 NG/DL (0.76-1.46); TOTAL PROTEIN 7.4 GM/DL (6.4-8.2)
[2017-11-17 13:56] LABS: HEPATITIS A AB IGM NEGATIVE (NEGATIVE); HEPATITIS B CORE AB IGM NEGATIVE (NEGATIVE); HEPATITIS B SURFACE ANTIGEN NEGATIVE (NEGATIVE); HEPATITIS C AB IgG NEGATIVE (NEGATIVE)
[2017-11-19 19:51] LABS: HIV 1/2 AG AB NON-REACTIVE (NONREACTIVE)
== END ==
LOC: CLAB 09:48
PROVIDERS: ATTEND Obstetrics & Gynecology
DX: D69.6 Thrombocytopenia, unspecified (principal); T74.21XA Adult sexual abuse, confirmed, initial encounter; Z86.39 Personal history of other endocrine, nutritional and metabolic disease; Z87.19 Personal history of other diseases of the digestive system
CPT/HCPCS: 36415; 80053; 80074; 82248; 84439; 84443; 85025; 85610; 85730; 86592; 87389; 87535

== ENCOUNTER 2017-12-26 10:02 | Emergency (ER) | payer OTHER ==
[~2017-12-26] VITALS: Ht 152.4 cm; Wt 45.5 kg
[2017-12-26 10:10] VITALS: BP 142/90; PULSE 95; RESP 16; TEMP 98.6; O2SAT 98
[2017-12-26] MEDS ORDERED: SODIUM CHLOR 0.9% 1000 ML INJ 1,000 ML IV ONE (10:25)
[2017-12-26] MEDS ORDERED: SODIUM CHLORIDE 0.9% FLUSH 10 ML FLUSH IVF PRN (10:30)
--- NOTE | 2017-12-26 10:34 | PD ---
HPI Chief Complaint: GI Complaint Time Seen by Provider: 10:25 Travel History International Travel<30 days: No Contact w/Intl Traveler<30days: No Traveled to known affect area: No History of Present Illness HPI Patient states that she had a cervical biopsy with Dr. KRUGER yesterday. Patient now complains of right lower quadrant pain onset since 3 AM today. Intermittent, sharp, 8 out of 10 intensity, noted hematuria today. Patient states she had associated nausea but without vomiting or diarrhea. Patient also denies associated fever, headache, neck pain, rash, vomiting or diarrhea. 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 PFSH Past Medical History ADHD: No Autoimmune Disease: No Blood Disorders: No Anxiety: Yes Depression: Yes Cancer: No Cardiovascular Problems: No Cirrhosis: Yes (LIVER CIRRHOSIS) Diabetes: No Diminished Hearing: No Endocrine: No Gastrointestinal Disorders: Yes Genitourinary: No Hepatitis: No Hypertension: No Immune Disorder: Yes Musculoskeletal: No Neurologic: No Psychiatric: Yes Reproductive: No Respiratory: No Immunizations Current: Yes Migraines: No Seizures: No Thyroid Disease: Yes (CELIA'S) Ulcer: No ?: Not Menopausal: No : 2 Para: 2 Miscarriage: 0 : 0 Past Surgical History Abdominal Surgery: Yes (LIVER BIOPSY FOR AN ESTRIGEN OD @19) Appendectomy: No Section: Yes (X2) Cholecystectomy: No Gynecologic Surgery: Yes (2 C-SECTIONS 2005, 2007) Joint Replacement: No Neurologic Surgery: No Pacemaker: No Thoracic Surgery: No Other Surgery: Yes (endoscopy ) Social History Alcohol Use: Yes (OCC) Tobacco Use: Yes (SOCIAL) Substance Use: Yes (THC daily) Allergies-Medications (Allergen,Severity, Reaction): Coded Allergies: latex (Verified Allergy, Severe, Swelling, 12/26/17) ketorolac (Verified Allergy, Unknown, ABD CRAMPING., 12/26/17) Reported Meds & Prescriptions Reported Meds & Active Scripts Active Macrobid (Nitrofurantoin Monohydrate Macrocrystals) 100 Mg Capsule 100 Mg PO BID 7 Days Zofran Odt (Ondansetron Odt) 4 Mg Tab 4 Mg SL Q6HR PRN Ketorolac (Ketorolac Tromethamine) 10 Mg Tab 10 Mg PO Q6HR PRN Reported B Complex (B-Complex Vitamins) 1 Cap 1 Cap PO DAILY Klonopin (Clonazepam) 2 Mg Tab 2 Mg PO BID Review of Systems General / Constitutional: No: Fever Eyes: No: Visual changes HENT: No: Headaches Cardiovascular: No: Chest Pain or Discomfort Respiratory: No: Shortness of Breath Gastrointestinal: Positive: Nausea, Abdominal Pain Genitourinary: Positive: Flank Pain Musculoskeletal: No: Pain Skin: No Rash Neurologic: No: Weakness Psychiatric: No: Depression Endocrine: No: Polydipsia Hematologic/Lymphatic: No: Easy Bruising Physical Exam Narrative GENERAL: SKIN: Warm and dry. HEAD: Atraumatic. Normocephalic. EYES: Pupils equal and round. No scleral icterus. No injection or drainage. ENT: No nasal bleeding or discharge. Mucous membranes pink and moist. NECK: Trachea midline. No JVD. CARDIOVASCULAR: Regular rate and rhythm. RESPIRATORY: No accessory muscle use. Clear to auscultation. Breath sounds equal bilaterally. GASTROINTESTINAL: Abdomen soft, tt percussion over rlq, nondistended. MUSCULOSKELETAL: Extremities without clubbing, cyanosis, or edema. No obvious deformities. NEUROLOGICAL: Awake and alert. No obvious cranial nerve deficits. Motor grossly within normal limits. Five out of 5 muscle strength in the arms and legs. Normal speech. PSYCHIATRIC: Appropriate mood and affect; insight and judgment normal. Data Data Last Documented VS Vital Signs Date Time Temp Pulse Resp B/P (MAP) Pulse Ox O2 Delivery O2 Flow Rate FiO2 12/26/17 10:10 98.6 95 16 142/90 (107) 98 Orders Orders Complete Blood Count With Diff (12/26/17 10:25) Comprehensive Metabolic Panel (12/26/17 10:25) Urinalysis - C+S If Indicated (12/26/17 10:25) Ed Urine Pregnancytest Poc (12/26/17 10:25) Ct Abd/Pel W/O Iv Contrast (12/26/17 10:25) Ecg Monitoring (12/26/17 10:25) Iv Access Insert/Monitor (12/26/17 10:25) Sodium Chloride 0.9% Flush (Ns Flush) (12/26/17 10:30) Sodium Chlor 0.9% 1000 Ml Inj (Ns 1000 M (12/26/17 10:25) Morphine Inj (Morphine Inj) (12/26/17 11:00) Ondansetron Inj (Zofran Inj) (12/26/17 11:00) Labs Laboratory Tests Test 12/26/17 10:47 White Blood Count 10.6 TH/MM3 Red Blood Count 4.98 MIL/MM3 Hemoglobin 15.6 GM/DL Hematocrit 45.1 % Mean Corpuscular Volume 90.6 FL Mean Corpuscular Hemoglobin 31.4 PG Mean Corpuscular Hemoglobin Concent 34.6 % Red Cell Distribution Width 13.1 % Platelet Count 198 TH/MM3 Mean Platelet Volume 9.8 FL Neutrophils (%) (Auto) 65.9 % Lymphocytes (%) (Auto) 21.1 % Monocytes (%) (Auto) 7.6 % Eosinophils (%) (Auto) 5.0 % Basophils (%) (Auto) 0.4 % Neutrophils # (Auto) 7.0 TH/MM3 Lymphocytes # (Auto) 2.2 TH/MM3 Monocytes # (Auto) 0.8 TH/MM3 Eosinophils # (Auto) 0.5 TH/MM3 Basophils # (Auto) 0.0 TH/MM3 CBC Comment DIFF FINAL Differential Comment Urine Color YELLOW Urine Turbidity CLEAR Urine pH 6.0 Urine Specific [place] 1.014 Urine Protein NEG mg/dL Urine Glucose (UA) NEG mg/dL Urine Ketones NEG mg/dL Urine Occult Blood TRACE Urine Nitrite NEG Urine Bilirubin NEG Urine Urobilinogen LESS THAN 2.0 MG/DL Urine Leukocyte Esterase SMALL Urine RBC 10 /hpf Urine WBC 7 /hpf Urine Squamous Epithelial Cells 1 /hpf Urine Mucus FEW /lpf Microscopic Urinalysis Comment CULT NOT INDICATED Blood Urea Nitrogen 4 MG/DL Creatinine 0.62 MG/DL Random Glucose 88 MG/DL Total Protein 8.4 GM/DL Albumin 4.4 GM/DL Calcium Level 9.2 MG/DL Alkaline Phosphatase 157 U/L Aspartate Amino Transf (AST/SGOT) 20 U/L Alanine Aminotransferase (ALT/SGPT) 29 U/L Total Bilirubin 0.3 MG/DL Sodium Level 139 MEQ/L Potassium Level 3.6 MEQ/L Chloride Level 104 MEQ/L Carbon Dioxide Level 26.9 MEQ/L Anion Gap 8 MEQ/L Estimat Glomerular Filtration Rate 116 ML/MIN [facility] Medical Decision Making Medical Screen Exam Complete: Yes Emergency Medical Condition: Yes Medical Record Reviewed: Yes Differential Diagnosis Colitis versus appendicitis versus ovarian torsion versus ectopic versus kidney stone Narrative Course CBC shows no leukocytosis, no anemia, no left shift, and normal platelet count next line UA shows slight hematuria no evidence of UTI ElectROLYTES are all within normal limits, normal kidney and liver functions. CT shows an IUD within a retroverted uterus, no free intraperitoneal air or fluid, patient does show nonobstructing bilateral renal calculi, as well as mild hepatomegaly. Diagnosis Primary Impression: NEPRHOLITHIASIS Patient Instructions: Abdominal Pain (ED), General Instructions, Kidney Stones (ED) Scripts Ondansetron Odt (Zofran Odt) 4 Mg Tab 4 MG SL Q8HR Y for Nausea/Vomiting, #15 TAB 0 Refills Prov: Berto Powell MD 12/26/17 Tramadol (Ultram) 50 Mg Tab 50 MG PO Q8H Y for PAIN for 3 Days, #9 TAB 0 Refills Prov: Berto Powell MD 12/26/17 Disposition: 01 DISCHARGE HOME Condition: Stable Berto Powell MD Dec 26, 2017 10:34
[2017-12-26] MEDS ORDERED: ONDANSETRON HCL 4 MG/2 ML VIAL IV PUSH ONE (11:00)
[2017-12-26] MEDS ORDERED: MORPHINE SULFATE 4 MG/ML INJ IV PUSH ONE (11:00)
[2017-12-26 11:05] LABS: BASOPHIL % 0.4 % (0.0-2.0); EOSINOPHIL # 0.5 TH/MM3 (0-0.4); HEMATOCRIT 45.1 % (35.0-46.0); HEMOGLOBIN 15.6 GM/DL (11.6-15.3); LYMPH % 21.1 % (9.0-44.0); LYMPHOCYTE # 2.2 TH/MM3 (1.0-4.8); MEAN CELL VOLUME 90.6 FL (80.0-100.0); MEAN CORPUSCULAR HEMOGLOBIN 31.4 PG (27.0-34.0); MEAN CORPUSCULAR HGB CONC 34.6 % (32.0-36.0); MEAN PLATELET VOLUME 9.8 FL (7.0-11.0); MONO % 7.6 % (0.0-8.0); MONOCYTE # 0.8 TH/MM3 (0-0.9); NEUT % 65.9 % (16.0-70.0); PLATELET COUNT 198 TH/MM3 (150-450); RED BLOOD COUNT 4.98 MIL/MM3 (4.00-5.30); RED CELL DISTRIBUTION WIDTH 13.1 % (11.6-17.2); WHITE BLOOD COUNT 10.6 TH/MM3 (4.0-11.0)
[2017-12-26 11:10] LABS: BILIRUBIN, URINE NEG (NEG); BLOOD, URINE TRACE (NEG); GLUCOSE,URINE NEG (NEG); KETONE, URINE NEG (NEG); MUCUS URINE FEW /lpf (OCC); NITRITE,URINE NEG (NEG); SQUAMOUS EPITHELIAL CELL URINE 1 /hpf (0-5); URINE COLOR YELLOW (YELLW/STRAW); URINE LEUKOCYTE ESTERASE SMALL (NEG)
[2017-12-26 11:25] LABS: ALBUMIN 4.4 GM/DL (3.4-5.0); ALT (GPT) 29 U/L (10-53); AST (GOT) 20 U/L (15-37); BICARBONATE 26.9 MEQ/L (21.0-32.0); BLOOD UREA NITROGEN 4 MG/DL (7-18); CALCIUM 9.2 MG/DL (8.5-10.1); CHLORIDE 104 MEQ/L (98-107); CREATININE 0.62 MG/DL (0.50-1.00); GLOMERULAR FILTRATION RATE 116 ML/MIN (>89); GLUCOSE,RANDOM 88 MG/DL (74-106); SODIUM (NA) 139 MEQ/L (136-145)
[2017-12-26 11:28] LABS: ALKALINE PHOSPHATASE 157 U/L (45-117); TOTAL BILIRUBIN ADULT 0.3 MG/DL (0.2-1.0); TOTAL PROTEIN 8.4 GM/DL (6.4-8.2)
--- NOTE | 2017-12-26 12:02 | RADRPT ---
EXAM DATE/TIME: 12/26/2017 11:32 [facility] COMPARISON: CT ABDOMEN & PELVIS W CONTRAST, October 31, 2017, 13:24. INDICATIONS : Right lower quadrant pain. Hematuria. ORAL CONTRAST: No oral contrast ingested. RADIATION DOSE: 4.49 CTDIvol (mGy) MEDICAL HISTORY : Cirrhosis. Renal calculi. Hernia, hiatal.Hashimotos. SURGICAL HISTORY : None. ENCOUNTER: Initial ACUITY: 1 day PAIN SCALE: 8/10 LOCATION: Right lower quadrant TECHNIQUE: Volumetric scanning of the abdomen and pelvis was performed. Using automated exposure control and ad justment of the mA and/or kV according to patient size, radiation dose was kept as low as reasonably achievable to obtain optimal diagnostic quality images. DICOM format image data is available electro nically for review and comparison. FINDINGS: LOWER LUNGS: The visualized lower lungs are clear. LIVER: Hepatomegaly is noted. Homogeneous density without lesion. There is no dilation of the biliary tree. No calcified gallstones. SPLEEN: There is a tiny calcified splenic granuloma. PANCREAS: Within normal limits. KIDNEYS: Normal in size and shape. Multiple calcified nonobstructing bilateral renal calculi are noted with t he largest on the right measuring 4 mm. There is no mass or hydronephrosis. ADRENAL GLANDS: Within normal limits. VASCULAR: There is no aortic aneurysm. BOWEL/MESENTERY: The stomach, small bowel, and colon demonstrate no acute abnormality. There is no free intraperitone al air or fluid. ABDOMINAL WALL: Within normal limits. RETROPERITONEUM: There is no lymphadenopathy. BLADDER: No wall thickening or mass. REPRODUCTIVE: Intrauterine device is noted within a retroverted uterus. INGUINAL: There is no lymphadenopathy or hernia. MUSCULOSKELETAL: Within normal limits for patient age. CONCLUSION: 1. Multiple calcified nonobstructing bilateral renal calculi. 2. Mild hepatomegaly. Zohaib Sawyer MD on December 26, 2017 at 11:55 Board Certified Radiologist. This report was verified electronically.
[2017-12-26] MEDS ORDERED: ZOFR4TAB3 SL (13:15)
[2017-12-26] MEDS ORDERED: TRAM50 PO (13:15)
== END 2017-12-26 14:02 | disposition home or self-care (01) ==
LOC: NEPE 10:02
DX: N20.0 Calculus of kidney (principal); R31.9 Hematuria, unspecified; R16.0 Hepatomegaly, not elsewhere classified; E06.3 Autoimmune thyroiditis; E03.9 Hypothyroidism, unspecified; K21.9 Gastro-esophageal reflux disease without esophagitis; K74.60 Unspecified cirrhosis of liver; F41.9 Anxiety disorder, unspecified; F32.9 Major depressive disorder, single episode, unspecified
CPT/HCPCS: 74176; 80053; 81001; 84703; 85025; 96374; 96375; 99284; J2270; J2405; J7030

== ENCOUNTER 2018-01-08 10:30 | Emergency (ER) | payer OTHER ==
[~2018-01-08] VITALS: Ht 152.4 cm; Wt 46.0 kg
[~2018-01-08 10:30] MED LIST changes: +TRAM50 PO
[2018-01-08 10:42] VITALS: BP 131/84; PULSE 88; RESP 17; TEMP 97.8; O2SAT 98
[2018-01-08] MEDS ORDERED: SODIUM CHLOR 0.9% 1000 ML INJ 1,000 ML IV ONE (10:54)
[2018-01-08] MEDS ORDERED: SODIUM CHLORIDE 0.9% FLUSH 10 ML FLUSH IVF PRN (11:00)
[2018-01-08 11:04] VITALS: RESP 18; O2SAT 98
--- NOTE | 2018-01-08 11:13 | PD ---
HPI Chief Complaint: Seizure Time Seen by Provider: 10:53 Travel History International Travel<30 days: No Contact w/Intl Traveler<30days: No Traveled to known affect area: No History of Present Illness HPI 28 YO F presents to the ED via EMS for evaluation of seizure activity this morning. The patient states that she does not recall the events that led to her being brought to the ED today. On presentation the patient is tearful and anxious. She complains of 9/10 right frontal headache with accompanying nausea. She states that she "can't get it together." She states that she is prescribed Klonopin for anxiety and seizures, has not taken any in two days. She complains of SOB. She denies risk of , states that she is currently menstruating. She does demonstrate pseudoseizure activity in the exam room after her family members arrived. PFSH Past Medical History ADHD: No Autoimmune Disease: No Blood Disorders: No Anxiety: Yes Depression: Yes Cancer: No Cardiovascular Problems: No Cirrhosis: Yes (LIVER CIRRHOSIS) Diabetes: No Diminished Hearing: No Endocrine: No Gastrointestinal Disorders: Yes GERD: Yes Genitourinary: No Hepatitis: No Hypertension: No Immune Disorder: Yes Musculoskeletal: No Neurologic: Yes Psychiatric: Yes Reproductive: No Respiratory: No Immunizations Current: Yes Migraines: No Seizures: Yes Thyroid Disease: Yes (NATHALIE'S) Ulcer: No Tetanus Vaccination: < 5 Years Influenza Vaccination: No ?: Not LMP: 01/08/18 Menopausal: No : 2 Para: 2 Miscarriage: 0 : 0 Past Surgical History Abdominal Surgery: Yes (LIVER BIOPSY FOR AN ESTRIGEN OD @19) Appendectomy: No Section: Yes (X2) Cholecystectomy: No Gynecologic Surgery: Yes (2 C-SECTIONS 2005, 2007) Joint Replacement: No Neurologic Surgery: No Pacemaker: No Thoracic Surgery: No Other Surgery: Yes (endoscopy ) Social History Alcohol Use: Yes (OCC) Tobacco Use: Yes (SOCIAL) Substance Use: No (PT DENIES) Allergies-Medications (Allergen,Severity, Reaction): Coded Allergies: ketorolac (Verified Allergy, Intermediate, SWELLING, 01/08/18) latex (Verified Allergy, Intermediate, Swelling, 01/08/18) Reported Meds & Prescriptions Reported Meds & Active Scripts Active Keflex (Cephalexin) 500 Mg Cap 500 Mg PO Q12H 5 Days Reported Klonopin (Clonazepam) 2 Mg Tab 2 Mg PO BID Review of Systems Except as stated in HPI: all other systems reviewed are Neg Physical Exam Narrative GENERAL: Well-nourished, well-developed white female no acute distress. PSYCH: Tearful, anxious. SKIN: Focused skin assessment warm/dry. HEAD: Normocephalic. Atraumatic. No hemotympanum. No raccoon eyes. No bony step-offs. EYES: No scleral icterus. No injection or drainage. PERRLA. EOMI. NECK: Supple, trachea midline. No JVD or lymphadenopathy. CARDIOVASCULAR: Regular rate and rhythm without murmurs, gallops, or rubs. RESPIRATORY: Breath sounds clear and equal bilaterally. No accessory muscle use. GASTROINTESTINAL: Abdomen soft, non-tender, nondistended. Active bowel sounds. MUSCULOSKELETAL: No cyanosis, or edema. Moves extremities spontaneously. NEUROLOGICAL: Awake and alert. Cranial nerves II through XII intact. Motor and sensory grossly within normal limits. Five out of 5 muscle strength in all muscle groups. Normal speech. BACK: Nontender without obvious deformity. No CVA tenderness. Data Data Last Documented VS Vital Signs Date Time Temp Pulse Resp B/P (MAP) Pulse Ox O2 Delivery O2 Flow Rate FiO2 01/08/18 14:10 97.8 87 17 124/81 (95) 99 01/08/18 11:53 Room Air Orders Orders Complete Blood Count With Diff (01/08/18 10:54) Alcohol (Ethanol) (01/08/18 10:54) Drug Screen, Random Urine (01/08/18 10:54) Electrocardiogram (01/08/18 ) Ct Brain W/O Iv Contrast(Rout) (01/08/18 ) Blood Glucose (01/08/18 10:54) Ecg Monitoring (01/08/18 10:54) Iv Access Insert/Monitor (01/08/18 10:54) Oximetry (01/08/18 10:54) Comprehensive Metabolic Panel (01/08/18 10:54) Sodium Chlor 0.9% 1000 Ml Inj (Ns 1000 M (01/08/18 10:54) Sodium Chloride 0.9% Flush (Ns Flush) (01/08/18 11:00) Urinalysis - C+S If Indicated (01/08/18 10:54) Ed Urine Pregnancytest Poc (01/08/18 10:54) Lorazepam Inj (Ativan Inj) (01/08/18 11:15) Urine Culture (01/08/18 11:56) Ceftriaxone Inj (Rocephin Inj) (01/08/18 12:45) Potassium Chloride (Kcl) (01/08/18 12:45) Ed Discharge Order (01/08/18 13:40) Labs Laboratory Tests Test 01/08/18 11:00 01/08/18 11:56 White Blood Count 13.3 TH/MM3 Red Blood Count 4.49 MIL/MM3 Hemoglobin 14.0 GM/DL Hematocrit 41.3 % Mean Corpuscular Volume 92.1 FL Mean Corpuscular Hemoglobin 31.2 PG Mean Corpuscular Hemoglobin Concent 33.9 % Red Cell Distribution Width 13.2 % Platelet Count 208 TH/MM3 Mean Platelet Volume 9.4 FL Neutrophils (%) (Auto) 82.4 % Lymphocytes (%) (Auto) 9.3 % Monocytes (%) (Auto) 6.3 % Eosinophils (%) (Auto) 1.7 % Basophils (%) (Auto) 0.3 % Neutrophils # (Auto) 10.9 TH/MM3 Lymphocytes # (Auto) 1.2 TH/MM3 Monocytes # (Auto) 0.8 TH/MM3 Eosinophils # (Auto) 0.2 TH/MM3 Basophils # (Auto) 0.0 TH/MM3 CBC Comment DIFF FINAL Differential Comment Blood Urea Nitrogen 2 MG/DL Creatinine 0.59 MG/DL Random Glucose 113 MG/DL Total Protein 7.8 GM/DL Albumin 4.2 GM/DL Calcium Level 8.9 MG/DL Alkaline Phosphatase 150 U/L Aspartate Amino Transf (AST/SGOT) 20 U/L Alanine Aminotransferase (ALT/SGPT) 31 U/L Total Bilirubin 0.3 MG/DL Sodium Level 141 MEQ/L Potassium Level 3.3 MEQ/L Chloride Level 108 MEQ/L Carbon Dioxide Level 22.5 MEQ/L Anion Gap 11 MEQ/L Estimat Glomerular Filtration Rate 122 ML/MIN Ethyl Alcohol Level 35 MG/DL Urine Color LIGHT-RED Urine Turbidity HAZY Urine pH 6.0 Urine Specific [place] 1.017 Urine Protein 30 mg/dL Urine Glucose (UA) NEG mg/dL Urine Ketones TRACE mg/dL Urine Occult Blood LARGE Urine Nitrite NEG Urine Bilirubin NEG Urine Urobilinogen LESS THAN 2.0 MG/DL Urine Leukocyte Esterase LARGE Urine RBC /hpf Urine WBC 90 /hpf Urine Squamous Epithelial Cells 7 /hpf Urine Bacteria OCC /hpf Urine Mucus MANY /lpf Microscopic Urinalysis Comment CULTURE INDICATED Urine Opiates Screen NEG Urine Barbiturates Screen NEG Urine Amphetamines Screen NEG Urine Benzodiazepines Screen POS Urine Cocaine Screen POS Urine Cannabinoids Screen POS MDM Medical Decision Making Medical Screen Exam Complete: Yes Emergency Medical Condition: Yes Differential Diagnosis seizure versus benzodiazepine withdrawal versus anxiety versus metabolic derangement versus other Narrative Course 28-year-old female presents to the ED for evaluation of seizure-like activity this morning. Patient endorses distant history of previous similar episodes. She states that she takes Klonopin 2 mg by mouth twice daily, last dose 2 days ago. On exam she is not postictal. She does exhibit some [id number] activity when her family members come to bed side. Vitals reviewed. She was administered 2 mg of Ativan IV, 1 L normal saline. EKG rate 83, sinus rhythm. TN interval 142, QRS 80, QTc 404 ms. Normal axis. No acute ST changes. Reviewed by Dr. Key. CBC: WBC 13.3. Hemoglobin 14.0. CMP: Potassium 3.3. BUN 2, creatinine 0.59. UA: Hazy, trace ketones, large leukocyte esterase, 90 WBCs, occasional bacteria. Culture pending. Alcohol: 35 Tox screen: Positive for benzos, cocaine, cannabinoids CT brain: normal per radiology read. On recheck the patient is sleeping. She is administered 40 mg KCl by mouth and 1 g Rocephin IV. I discussed the results of the workup with the patient and her family. Mom states that the patient is having increased anxiety and stress, anniversary of her fathers just passed. Patient denies SI. The patient does not want to be admitted for further evaluation of seizures. Her significant other at bedside states that he will be with the patient for the next few days. She is prescribed a course of Keflex, instructed to resume at home medications, follow with her PCP and neurologist. She is stable and discharged home. Diagnosis Primary Impression: Urinary tract infection Qualified Codes: N39.0 - Urinary tract infection, site not specified; R31.9 - Hematuria, unspecified Additional Impression: Observed seizure-like activity Referrals: Neurologist Primary Care Physician Additional Instructions: Rest, hydrate. Resume at home medications as previously prescribed. Begin Bactrim tomorrow and take until every dose is gone. Follow-up with your primary care provider and neurologist. Return to the ED for worsening symptoms or any urgent or emergent medical condition. Med/Other Pt SpecificInfo: Prescription(s) given Scripts Cephalexin (Keflex) 500 Mg Cap 500 MG PO Q12H for Infection for 5 Days, #10 CAP 0 Refills Prov: Schuyler Key MD 01/08/18 Disposition: 01 DISCHARGE HOME Condition: Stable Bernice Payne Jan 08, 2018 11:13
[2018-01-08] MEDS ORDERED: LORazepam 2 MG/ML VIAL IV PUSH ONE (11:15)
[2018-01-08 11:17] LABS: AUTOMATED NEUTROPHIL # 10.9 TH/MM3 (1.8-7.7); BASOPHIL % 0.3 % (0.0-2.0); EOSINOPHIL # 0.2 TH/MM3 (0-0.4); EOSINOPHIL % 1.7 % (0.0-4.0); HEMATOCRIT 41.3 % (35.0-46.0); LYMPH % 9.3 % (9.0-44.0); LYMPHOCYTE # 1.2 TH/MM3 (1.0-4.8); MEAN CELL VOLUME 92.1 FL (80.0-100.0); MEAN CORPUSCULAR HEMOGLOBIN 31.2 PG (27.0-34.0); MEAN CORPUSCULAR HGB CONC 33.9 % (32.0-36.0); MEAN PLATELET VOLUME 9.4 FL (7.0-11.0); MONO % 6.3 % (0.0-8.0); MONOCYTE # 0.8 TH/MM3 (0-0.9); NEUT % 82.4 % (16.0-70.0); PLATELET COUNT 208 TH/MM3 (150-450); RED BLOOD COUNT 4.49 MIL/MM3 (4.00-5.30); RED CELL DISTRIBUTION WIDTH 13.2 % (11.6-17.2); WHITE BLOOD COUNT 13.3 TH/MM3 (4.0-11.0)
[2018-01-08 11:29] LABS: ALBUMIN 4.2 GM/DL (3.4-5.0); AST (GOT) 20 U/L (15-37); BICARBONATE 22.5 MEQ/L (21.0-32.0); BLOOD UREA NITROGEN 2 MG/DL (7-18); CALCIUM 8.9 MG/DL (8.5-10.1); CHLORIDE 108 MEQ/L (98-107); CREATININE 0.59 MG/DL (0.50-1.00); GLOMERULAR FILTRATION RATE 122 ML/MIN (>89); GLUCOSE,RANDOM 113 MG/DL (74-106); SODIUM (NA) 141 MEQ/L (136-145)
[2018-01-08 11:30] LABS: ALT (GPT) 31 U/L (10-53)
[2018-01-08 11:32] LABS: ALKALINE PHOSPHATASE 150 U/L (45-117); TOTAL BILIRUBIN ADULT 0.3 MG/DL (0.2-1.0); TOTAL PROTEIN 7.8 GM/DL (6.4-8.2)
[2018-01-08 11:53] VITALS: BP 137/88; PULSE 118; RESP 18; O2SAT 98
[2018-01-08 12:32] LABS: BACTERIA, URINE OCC /hpf; BILIRUBIN, URINE NEG (NEG); BLOOD, URINE LARGE (NEG); GLUCOSE,URINE NEG (NEG); KETONE, URINE TRACE mg/dL (NEG); MUCUS URINE MANY /lpf (OCC); NITRITE,URINE NEG (NEG); SQUAMOUS EPITHELIAL CELL URINE 7 /hpf (0-5); URINE LEUKOCYTE ESTERASE LARGE (NEG)
[2018-01-08 12:33] LABS: URINE COLOR LIGHT-RED (YELLW/STRAW)
--- NOTE | 2018-01-08 12:38 | RADRPT ---
EXAM DATE/TIME: 01/08/2018 12:23 [facility] COMPARISON: No previous studies available for comparison. INDICATIONS : Possible seizure today, cephalgia. RADIATION DOSE: 56.77 CTDIvol (mGy) ; Patient motion MEDICAL HISTORY : Seizures. Cirrhosis. SURGICAL HISTORY : None. ENCOUNTER: Initial ACUITY: 1 day PAIN SCALE: 5/10 LOCATION: Left head TECHNIQUE: Multiple contiguous axial images were obtained of the head. Using automated exposure control and adj ustment of the mA and/or kV according to patient size, radiation dose was kept as low as reasonably a chievable to obtain optimal diagnostic quality images. DICOM format image data is available electro nically for review and comparison. FINDINGS: CEREBRUM: The ventricles are normal for age. No evidence of midline shift, mass lesion, hemorrhage or acute in farction. No extra-axial fluid collections are seen. POSTERIOR FOSSA: The cerebellum and brainstem are intact. The 4th ventricle is midline. The cerebellopontine angle i s unremarkable. EXTRACRANIAL: The visualized portion of the orbits is intact. SKULL: The calvaria is intact. No evidence of skull fracture. CONCLUSION: No acute intracranial disease. Hany Segovia MD on January 08, 2018 at 12:36 Board Certified Radiologist. This report was verified electronically.
[2018-01-08] MEDS ORDERED: POTASSIUM CHLORIDE 20 MEQ CONTROLLED RELEASE TAB PO ONE (12:45)
[2018-01-08] MEDS ORDERED: cefTRIAXone INJ 1,000 MG in SODIUM CHLORIDE 0.9% INJ 100 ML IV ONE (12:45)
[2018-01-08] MEDS ORDERED: CEPH-460 PO (13:39)
[2018-01-08 14:10] VITALS: BP 124/81; TEMP 97.8
--- NOTE | 2018-01-08 20:51 | EKG ---
Date Performed: 01/08/2018 Time Performed: 11:21:24 PTAGE: 28 years EKG: Sinus rhythm WITH SINUS ARRHYTHMIA POSSIBLE RIGHT VENTRICULAR CONDUCTION DELAY BORDERLINE ECG NO PREVIOUS TRACING DOCTOR: Aroldo Damian Interpretating Date/Time 01/08/2018 20:50:59
== END 2018-01-08 14:15 | disposition home or self-care (01) ==
LOC: NEPE 10:30
DX: N39.0 Urinary tract infection, site not specified (principal); R56.9 Unspecified convulsions; I49.8 Other specified cardiac arrhythmias; F41.9 Anxiety disorder, unspecified; F32.9 Major depressive disorder, single episode, unspecified; K21.9 Gastro-esophageal reflux disease without esophagitis; E06.3 Autoimmune thyroiditis; K74.60 Unspecified cirrhosis of liver; B95.4 Other streptococcus as the cause of diseases classified elsewhere
CPT/HCPCS: 70450; 80053; 80307; 81001; 84703; 85025; 87086; 93005; 96361; 96365; 96375; 99285; J0696; J2060; J7030

== ENCOUNTER 2018-03-10 23:54 | Emergency (ER) | payer OTHER ==
[~2018-03-10] VITALS: Ht 162.6 cm; Wt 50.0 kg
[~2018-03-10 23:54] MED LIST changes: +CEPH-460 PO; -KETO10 PO; -MACR100C2 PO; -TRAM50 PO; -VITACAP7 PO; -ZOFR4TAB3 SL
[2018-03-10 23:56] VITALS: BP 145/90; PULSE 118; RESP 18; TEMP 97.8; O2SAT 100
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
== END 2018-03-11 00:48 | disposition home or self-care (01) ==
LOC: NEPD 23:54
DX: S83.92XA Sprain of unspecified site of left knee, initial encounter (principal); V03.90XA Pedestrian on foot injured in collision with car, pick-up truck or van, unspecified whether traffic or nontraffic accident, initial encounter; Y92.481 Parking lot as the place of occurrence of the external cause
CPT/HCPCS: 73560; 99283